=== PATIENT | female | born 1960 | race Caucasian/White ===

== ENCOUNTER → 2017-02-20 | Outpatient (CLI) | payer OTHER | LOC: FIMAGING 12:46 | PROVIDERS: ATTEND Family Medicine | DX: Z12.31 Encounter for screening mammogram for malignant neoplasm of breast (principal); Z80.3 Family history of malignant neoplasm of breast | CPT/HCPCS: G0202 ==

== ENCOUNTER → 2017-06-26 | Outpatient (CLI) | payer OTHER ==
--- NOTE | 2017-06-26 17:58 | CPEEG ---
[f rep st] ELECTROENCEPHALOGRAM DATE OF STUDY: 06/26/2017 DATE OF STUDY: 06/26/2017 INTERPRETATION: This EEG is abnormal due to the following reasons: 1. There was a recorded complex partial seizure of probable left temporal onset. 2. There are potentially epileptogenic abnormalities over the left temporal head region. 3. There was a mild degree of focal slowing over the left temporal head region. 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 The findings of the EEG were communicated to the patient' s primary Neurologic provider, Robbie Mendez PA-C. REPORT: This EEG contains 10 Hz alpha to the posterior head regions. There was a mild degree of focal slowing over the left temporal head region composed of intermittent low amplitude theta frequency activity. In addition, the patient had left temporal intermittent rhythmic delta activity (TIRDA) with occasional embedded sharp wave discharges over the left anterior temporal head region. Shortly after hyperventilation, the patient had a typical spell, according to the patient's , characterized by confusion and nonsensical movements. The video revealed the patient having oral automatisms and then bimanual automatisms, perhaps first in the left arm and then to the right arm over the duration of the seizure. The seizure had an onset at elapsed time 14:08 and an offset at 15:05 electrographically with a total duration of 57 minutes. The EEG correlate with the seizure initially showed a brief rhythmic burst of sharply contoured theta activity over electrode F7. There was then high amplitude myogenic artifact that obscured the underlying tracing. When the myogenic artifact resolved, there was already apparent spread to the right temporal head region as there was rhythmic theta frequency activity over the bilateral anterotemporal head regions with embedded sharp waves. The discharge evolved and remained bilateral with more rounded theta frequency activity and further evolved into rhythmic delta frequency activity over the bitemporal head regions with an abrupt offset and attenuation of background activity. The findings of this EEG were communicated to the patient's primary neurologic provider, Robbie Mendez PA-C. /[id number]/MODL MTDD
== END ==
LOC: FCPNEURO 12:36
PROVIDERS: ATTEND Psychiatry & Neurology Neurology
DX: G40.209 Localization-related (focal) (partial) symptomatic epilepsy and epileptic syndromes with complex partial seizures, not intractable, without status epilepticus (principal); G93.89 Other specified disorders of brain

== ENCOUNTER → 2017-06-27 | Outpatient (CLI) | payer OTHER | LOC: FIMAGING 06:49 | PROVIDERS: ATTEND Physician Assistant Medical | DX: G93.89 Other specified disorders of brain (principal); S09.90XA Unspecified injury of head, initial encounter ==